=== PATIENT | female | born 1985 | race Two or more races ===

== ENCOUNTER 2017-03-18 22:27 | Emergency (ER) | payer SELFPAY ==
[~2017-03-18] VITALS: Ht 165.1 cm; Wt 60.4 kg
[2017-03-18 23:53] LABS: BASO # 0.1 x10^3/uL (0.0-0.2); BASO % 1 % (0-3); EOS % 1 % (0-3); HEMATOCRIT 35.8 % (36.0-47.0); HEMOGLOBIN 11.7 g/dL (12.0-15.5); LYMPH # 2.7 x10^3/uL (1.0-4.8); LYMPH % 23 % (24-48); MEAN CORPUSCULAR HEMOGLOBIN 27 pg (25-35); MEAN CORPUSCULAR HGB CONC 33 g/dL (31-37); MEAN CORPUSCULAR VOLUME 84 fL (79-100); MONO % 11 % (0-9); NEUT % 64 % (31-73); PLATELET COUNT 255 x10^3/uL (140-400); RED BLOOD COUNT 4.28 x10^6/uL (3.50-5.40); RED CELL DISTRIBUTION WIDTH 17.5 % (11.5-14.5)
[2017-03-18 23:59] LABS: BILIRUBIN,URINE NEGATIVE (NEG); GLUCOSE,URINE NEGATIVE (NEG); NITRITE,URINE NEGATIVE (NEG); PH,URINE 6.5; PROTEIN,URINE NEGATIVE (NEG-TRACE); UROBILINOGEN,URINE 0.2 mg/dL (0.2 mg/dL)
[2017-03-19] LABS: CALCIUM 9.2 mg/dL (8.5-10.1); CREATININE 0.6 mg/dL (0.6-1.0); GFR 115.1; POTASSIUM 3.4 mmol/L (3.5-5.1)
[2017-03-19 00:05] LABS: BACTERIA,URINE MANY /HPF (0-FEW); RBC,URINE OCC /HPF (0-2); SQUAMOUS EPITHELIAL CELL,UR FEW /LPF
[2017-03-19 00:07] LABS: ALBUMIN 3.4 g/dL (3.4-5.0); ALBUMIN/GLOBULIN RATIO 0.8 (1.0-1.7); TOTAL BILIRUBIN 0.2 mg/dL (0.2-1.0); TOTAL PROTEIN 7.7 g/dL (6.4-8.2)
--- NOTE | 2017-03-19 00:27 | RAD ---
OB < 14 WKS History: 1 episode of spotting today Comparison: None. Findings: Multiple transabdominal sonographic images of the pelvis are submitted. Uterus measured 11.3 x 4.6 x 6.1 cm. There is a single intrauterine gestational sac, identifiable pole. There is identifiable yolk sac. There is detectable cardiac activity 170 bpm. Gestational sac morphology is within normal limits. Cervix measured 4 cm. Left ovary measured 3.2 x 4.8 x 2.9 cm. There is a hypoechoic lesion of the left ovary up to 1.7 x 2.4 x 2.1 cm. Right ovary measured 2.1 x 3.1 x 1.4 cm. There is normal color flow of the ovaries bilaterally. [place]-rump length measurement of 1.3 cm corresponds with 7 weeks 4 days with adjusted ultrasound age 7 weeks 4 days and estimated delivery date of 10/31/2017. LMP age is 6 weeks 5 days with estimated delivery date of 11/06/2017. There is no significant free fluid demonstrated. Placenta and anatomy are not well visualized at this age of . Impression: 1. There is a single viable intrauterine , adjusted ultrasound age 7 weeks 4 days with estimated delivery date of 10/31/2016. There is what likely represents a corpus luteal cyst left ovary up to 2.4 cm. Electronically signed by: Denny Kearney MD (03/19/2017 12:25 AM) [facility]
[2017-03-19] MEDS ORDERED: CEPHALEXIN 250 MG CAPSULE. PO ONE (01:30)
[2017-03-19 01:45] VITALS: BP 101/62
[2017-03-19] MEDS ORDERED: DOCU-109 PO (01:52)
[2017-03-19] MEDS ORDERED: CEPH-264 PO (01:52)
[2017-03-19] MEDS ORDERED: ONDA4TAB7 PO (01:52)
--- NOTE | 2017-03-19 06:29 | ED.ADGEN ---
Past Medical History Past Medical History: No Pertinent History Past Surgical History: No Surgical History Alcohol Use: None Drug Use: None Adult General Chief Complaint Chief Complaint: VAGINAL BLEEDING HPI HPI Patient is a 31 year old woman, , who presents to the emergency department with a complaint of vaginal bleeding. Patient states that she is 6 weeks by dates, states that she noted blood on toilet paper when she wiped at home a few hours prior to arrival in the ED. this occurred once. No further bleeding. Denies any passage of patsy blood, clots, gush of fluid. She denies any discharge or drainage, any concern for STI exposures, any injuries, states that she had a very mild amount of abdominal cramping that occurred just after she used the restroom, but no cramping currently. No back or flank pain, no chest pain, shortness breath, nausea or vomiting. States that she was last sexually active 2 weeks ago. Denies any insertions or trauma to the vagina. Patient states she had a positive prior test at home but has not yet followed up with an [employer] or have an established relationship, she is taking vitamins. Patient is primarily Danish-speaking but she understands given amount of Danish, translation is assisted at bedside by significant other at the patient's request. Review of Systems Review of Systems Constitutional: Denies fever or chills. [] Eyes: Denies change in visual acuity. [] HENT: Denies nasal congestion or sore throat. [] Respiratory: Denies cough or shortness of breath. [] Cardiovascular: Denies chest pain or edema. [] GI: Denies nausea, vomiting, bloody stools or diarrhea. [] Lower abdominal cramping, currently resolved. : Denies dysuria. [] Vaginal bleeding. Musculoskeletal: Denies back pain or joint pain. [] Integument: Denies rash. [] Neurologic: Denies headache, focal weakness or sensory changes. [] Endocrine: Denies polyuria or polydipsia. [] Lymphatic: Denies swollen glands. [] Psychiatric: Denies depression or anxiety. [] Current Medications Current Medications Current Medications Medications (Trade) Dose Ordered Sig/Kar Start Time Stop Time Status Last Admin Dose Admin Cephalexin HCl (Keflex) 500 mg 1X ONCE 03/19/17 01:30 03/19/17 01:31 DC 03/19/17 01:45 500 MG Allergies Allergies Allergies Coded Allergies Type Severity Reaction Last Updated Verified No Known Drug Allergies 03/18/17 No Physical Exam Physical Exam Constitutional: Well developed, well nourished, no acute distress, non-toxic appearance. [] HENT: Normocephalic, atraumatic, bilateral external ears normal, oropharynx moist, no oral exudates, nose normal. [] Eyes: PERRLA, EOMI, conjunctiva normal, no discharge. [] Neck: Normal range of motion, no tenderness, supple, no stridor. [] Cardiovascular:Heart rate regular rhythm, no murmur S1, S2, rubs or gallops.[] Lungs & Thorax: Bilateral breath sounds clear to auscultation, no wheezing, rhonchi, rales. No chest wall crepitus or tenderness. [] Abdomen: Bowel sounds normal, soft, no tenderness, no rebound, rigidity, no guarding, no masses, no pulsatile masses. [] Skin: Warm, dry, no erythema, no rash. [] Back: No tenderness, no CVA tenderness. [] Extremities: No tenderness, no cyanosis, no clubbing, ROM intact, no edema. [] Neurologic: Alert and oriented X 3, normal motor function, normal sensory function, no focal deficits noted. [] Psychologic: Affect normal, judgement normal, mood normal. [] Pelvic examination: Patient with a closed os, no CMT, no adnexal masses or tenderness identified. External examination is unremarkable, no lesions or injuries identified. Patient with a small amount of red tinged mucous noted on glove. Speculum examination performed without issue, visualize cervix is unremarkable, specimens taken without issue, scant amount of red tinged discharge again noted. Current Patient Data Vital Signs Vital Signs Date Time Temp Pulse Resp B/P (MAP) Pulse Ox O2 Delivery O2 Flow Rate FiO2 03/19/17 01:45 65 16 101/62 (75) 100 Room Air 03/19/17 00:50 98.4 98.4 Lab Values Laboratory Tests Test 03/18/17 23:14 03/18/17 23:16 03/18/17 23:45 Urine Collection Type Unknown Urine Color Yellow Urine Clarity Clear Urine pH 6.5 Urine Specific [place] 1.010 Urine Protein Negative mg/dL (NEG-TRACE) Urine Glucose (UA) Negative mg/dL (NEG) Urine Ketones (Stick) Negative mg/dL (NEG) Urine Blood Trace (NEG) Urine Nitrite Negative (NEG) Urine Bilirubin Negative (NEG) Urine Urobilinogen Dipstick 0.2 mg/dL (0.2 mg/dL) Urine Leukocyte Esterase Negative (NEG) Urine RBC Occ /HPF (0-2) Urine WBC 5-10 /HPF (0-4) Urine Squamous Epithelial Cells Few /LPF Urine Bacteria Many /HPF (0-FEW) POC Urine HCG, Qualitative Hcg positive (Negative) White Blood Count 12.0 x10^3/uL (4.0-11.0) H Red Blood Count 4.28 x10^6/uL (3.50-5.40) Hemoglobin 11.7 g/dL (12.0-15.5) L Hematocrit 35.8 % (36.0-47.0) L Mean Corpuscular Volume 84 fL (79-100) Mean Corpuscular Hemoglobin 27 pg (25-35) Mean Corpuscular Hemoglobin Concent 33 g/dL (31-37) Red Cell Distribution Width 17.5 % (11.5-14.5) H Platelet Count 255 x10^3/uL (140-400) Neutrophils (%) (Auto) 64 % (31-73) Lymphocytes (%) (Auto) 23 % (24-48) L Monocytes (%) (Auto) 11 % (0-9) H Eosinophils (%) (Auto) 1 % (0-3) Basophils (%) (Auto) 1 % (0-3) Neutrophils # (Auto) 7.8 x10^3uL (1.8-7.7) H Lymphocytes # (Auto) 2.7 x10^3/uL (1.0-4.8) Monocytes # (Auto) 1.4 x10^3/uL (0.0-1.1) H Eosinophils # (Auto) 0.1 x10^3/uL (0.0-0.7) Basophils # (Auto) 0.1 x10^3/uL (0.0-0.2) Sodium Level 139 mmol/L (136-145) Potassium Level 3.4 mmol/L (3.5-5.1) L Chloride Level 104 mmol/L (98-107) Carbon Dioxide Level 25 mmol/L (21-32) Anion Gap 10 (6-14) Blood Urea Nitrogen 13 mg/dL (7-20) Creatinine 0.6 mg/dL (0.6-1.0) Estimated GFR (Cockcroft-Gault) 115.1 BUN/Creatinine Ratio 22 (6-20) H Glucose Level 88 mg/dL (70-99) Calcium Level 9.2 mg/dL (8.5-10.1) Total Bilirubin 0.2 mg/dL (0.2-1.0) Aspartate Amino Transferase (AST) 17 U/L (15-37) Alanine Aminotransferase (ALT) 19 U/L (14-59) Alkaline Phosphatase 65 U/L (46-116) Total Protein 7.7 g/dL (6.4-8.2) Albumin 3.4 g/dL (3.4-5.0) Albumin/Globulin Ratio 0.8 (1.0-1.7) L Laboratory Tests 03/18/17 23:45 Laboratory Tests 03/18/17 23:45 Microbiology 03/19/17 Wet Prep - Final, Complete EKG EKG Not indicated.[] Radiology/Procedures Radiology/Procedures [][facility] [address] [place] [address] IMAGING REPORT Signed PATIENT: VALERIE LANGLEY ACCOUNT: [id number] : 1985 LOCATION: ER AGE: 31 SEX: F EXAM STATUS: REG ER ORD. PHYSICIAN: RON MARTIN DO REASON: Preg vag bleed PROCEDURE: OB < 14 WKS OB < 14 WKS History: 1 episode of spotting today Comparison: None. Findings: Multiple transabdominal sonographic images of the pelvis are submitted. Uterus measured 11.3 x 4.6 x 6.1 cm. There is a single intrauterine gestational sac, identifiable pole. There is identifiable yolk sac. There is detectable cardiac activity 170 bpm. Gestational sac morphology is within normal limits. Cervix measured 4 cm. Left ovary measured 3.2 x 4.8 x 2.9 cm. There is a hypoechoic lesion of the left ovary up to 1.7 x 2.4 x 2.1 cm. Right ovary measured 2.1 x 3.1 x 1.4 cm. There is normal color flow of the ovaries bilaterally. [place]-rump length measurement of 1.3 cm corresponds with 7 weeks 4 days with adjusted ultrasound age 7 weeks 4 days and estimated delivery date of 10/31/2017. LMP age is 6 weeks 5 days with estimated delivery date of 11/06/2017. There is no significant free fluid demonstrated. Placenta and anatomy are not well visualized at this age of . Impression: 1. There is a single viable intrauterine , adjusted ultrasound age 7 weeks 4 days with estimated delivery date of 10/31/2016. There is what likely represents a corpus luteal cyst left ovary up to 2.4 cm. Electronically signed by: Eliecer Montgomery MD (03/19/2017 12:25 AM) [facility] DICTATED and SIGNED BY: ELIECER MONTGOMERY MD DATE: 03/19/17 0022 CC: RON MARTIN DO; NON,STAFF ~ Course & Med Decision Making Course & Med Decision Making Pertinent Labs and Imaging studies reviewed. (See chart for details) Patient denies any discomfort or symptoms currently. Is agreeable to receiving laboratory studies and imaging in the ED. Urine hCG is positive, patient is Rh+ , ultrasound reveals a 7 week 4 day single intrauterine . Urinalysis is positive for bacteria, negative for nitrates. Wet prep is unremarkable. I did discuss findings with patient in the emergency department, including concern for threatened , and vaginal bleeding in early . Discussed that this is a [id number] situation. Also discuss importance of establishing expectant care. We also discussed concerning symptoms that prompt return to the ED for additional evaluation, importance of staying well-hydrated , and use of Keflex 1 week for treatment of bacteriuria. Patient voiced understanding and agreement with plan as stated, all questions answered patient' s satisfaction at this time. First dose of Keflex given in the ED without issue. Patient was given contact information for Dr. Graf of [employer] [employer]. Also given prescription for Zofran and Colace to be used as directed, encouraged to continue her vitamins. Discharged home in stable condition with plan, precautions, and prescription as stated. Dragon Disclaimer Dragon Disclaimer This electronic medical record was generated, in whole or in part, using a voice recognition dictation system. Departure Impression: Primary Impression: Threatened in first trimester Additional Impressions: Vaginal bleeding in Urinary tract infection affecting Disposition: 01 HOME, SELF-CARE Condition: IMPROVED Scripts Cephalexin (KEFLEX) 500 Mg Capsule 1 CAP PO BID, #14 CAP Prov: RON MARTIN DO 03/19/17 Docusate Sodium (COLACE) 100 Mg Capsule 1-2 CAP PO PRN DAILY Y for CONSTIPATION, #30 CAP Prov: RON MARTIN DO 03/19/17 Ondansetron Hcl (ZOFRAN) 4 Mg Tablet 4 MG PO PRN Q8HRS Y for NAUSEA/VOMITING, #12 TAB Prov: RON MARTIN DO 03/19/17 Problem Qualifiers RON MARTIN DO Mar 19, 2017 06:29
== END 2017-03-19 02:09 | disposition other institution (70) ==
LOC: ER 22:27
DX: O20.0 Threatened abortion (principal); Z3A.01 Less than 8 weeks gestation of pregnancy; O23.41 Unspecified infection of urinary tract in pregnancy, first trimester
CPT/HCPCS: 36415; 76801; 80053; 81001; 81025; 85025; 86901; 87086; 87491; 87591; 99285; Q0111